=== PATIENT | female | born 1990 | race Caucasian/White ===

== ENCOUNTER 2018-05-04 20:04 | Emergency (ER) | payer MEDICAID ==
[~2018-05-04] VITALS: Ht 160 cm; Wt 65.0 kg
[2018-05-04] MEDS ORDERED: TETRACAINE 0.5% OPHTH DROPS 4ML BOTHEYE ONE (20:45)
[2018-05-04] MEDS ORDERED: FLUORESCEIN SODIUM 1MG/STRIP BOTHEYE ONE (20:45)
[2018-05-04 21:19] VITALS: BP 122/82
[2018-05-04] MEDS ORDERED: LORATADINE 10MG TABLET PO SCH (21:30)
== END 2018-05-05 02:09 | disposition home or self-care (01) ==
LOC: ER 20:04
DX: H10.9 Unspecified conjunctivitis (principal); J30.9 Allergic rhinitis, unspecified; F17.200 Nicotine dependence, unspecified, uncomplicated; Z98.890 Other specified postprocedural states
CPT/HCPCS: 99284